=== PATIENT | female | born 1940 | race Caucasian/White ===

== ENCOUNTER → 2016-04-24 | Outpatient (CLI) | payer OTHER ==
[~2016-04-24] MED LIST: IOPAMIDOL (ISOVUE-370) 150 ML BTL IV ONE
== END ==
LOC: FIMAGING 10:23
PROVIDERS: ATTEND Internal Medicine Cardiovascular Disease
DX: I48.91 Unspecified atrial fibrillation (principal)
CPT/HCPCS: 75572; Q9967

== ENCOUNTER 2016-04-30 11:01 | Observation (INO) | payer OTHER ==
[2016-04-30] MEDS ORDERED: MIDAZOLAM 2 MG/2 ML VIAL IVP ONE (11:06)
[2016-04-30] MEDS ORDERED: NS 1,000 ML IV ONE (11:06)
--- NOTE | 2016-04-30 11:34 | CPEKG ---
Heart Rate: 62 RR Interval: 968 P-R Interval: 188 QRSD Interval: 88 QT Interval: 460 QTC Interval: 468 P Shannon: 73 QRS Shannon: 67 T Wave Shannon: 74 EKG Severity - ABNORMAL ECG - EKG Impression: SINUS RHYTHM EKG Impression: LEFT VENTRICULAR HYPERTROPHY Electronically Signed By: Jameson Campuzano 30-Apr-2016 15:34:50
[2016-04-30 12:13] LABS: % IMMATURE GRANULYOCYTES 0.4 % (0.0-1.1); ABSOLUTE IMMATURE GRANULOCYTES 0.03 10^3/uL (0.00-0.10); ADD DIFF? NO; ADD MORPH? NO; ADD SCAN? NO; ATYPICAL LYMPHOCYTE FLAG 20 (0-99); FRAGMENT RBC FLAG 0 (0-99); HEMATOCRIT 38.8 % (38.0-47.0); HEMOGLOBIN 12.8 g/dL (12.6-16.3); LEFT SHIFT FLG 0 (0-99); LIPEMIA HEMOLYSIS FLAG 80 (0-99); MEAN CELL HEMOGLOBIN 30.5 pg (27.9-34.1); MEAN CELL VOLUME 92.4 fL (81.5-99.8); MEAN PLATELET VOLUME 9.2 fL (8.7-11.7); PLATELET CLUMPS FLAG 0 (0-99); PLATELET COUNT 208 10^3/uL (150-400); RED CELL DISTRIBUTION WIDTH 12.7 % (11.5-15.2)
[2016-04-30] MEDS ORDERED: HEPARIN/DEXTROSE 25,000 UNIT/500 ML BAG IV ONE (12:16)
[2016-04-30] MEDS ORDERED: LIDOCAINE 1% 30 ML SDV ONE (12:16)
[2016-04-30] MEDS ORDERED: BUPIVACAINE 0.5% 30 ML SDV ONE (12:17)
[2016-04-30] MEDS ORDERED: HEPARIN 10,000 UNIT/10 ML MDV ONE (12:17)
[2016-04-30 12:23] LABS: APTT 30.6 SEC (23.0-38.0); INR 1.36 (0.83-1.16); PROTIME(PATIENT) 16.8 SEC (12.0-15.0)
[2016-04-30 12:27] LABS: ANION GAP 8 mEq/L (8-16); CALCIUM 9.4 mg/dL (8.5-10.4); CARBON DIOXIDE 25 mEq/l (22-31); CHLORIDE 107 mEq/L (97-110); CREATININE 0.7 mg/dL (0.6-1.0); GLOMERULAR FILTRATION RATE > 60; GLUCOSE 101 mg/dL (70-100); POTASSIUM 4.5 mEq/L (3.5-5.2); SODIUM 140 mEq/L (134-144)
[2016-04-30] MEDS ORDERED: OXYCODONE/APAP 5/325 TAB PO PRN (16:35)
[2016-04-30] MEDS ORDERED: ONDANSETRON 4 MG/2 ML VIAL IVP PRN (16:35)
[2016-04-30] MEDS ORDERED: ACETAMINOPHEN 325 MG TAB PO PRN ×2 (16:35→16:37)
[2016-04-30] MEDS ORDERED: ATROPINE SULFATE 1 MG/10 ML SYR ONE (17:17)
[2016-04-30] MEDS ORDERED: NON-FORMULARY NEW DRUG (Simvastatin [Zocor] 20 MG) PO SCH ×2 (21:00)
[2016-04-30] MEDS ORDERED: ATORVASTATIN CALCIUM 10 MG TAB PO SCH (21:00)
[2016-04-30] MEDS ORDERED: traZODone 100 MG TAB PO SCH (21:00)
[2016-04-30] MEDS: GABAPENTIN 300 MG CAP PO SCH (21:45)
[2016-04-30] MEDS: SOTALOL HCL 80 MG TAB PO SCH (21:46)
[2016-05-01] MEDS ORDERED: ENOXAPARIN 80 MG/0.8 ML SYR SC ONE (01:00)
[2016-05-01] MEDS: ENOXAPARIN 80 MG/0.8 ML SYR SC SCH ×2 (01:02→12:31)
[2016-05-01] MEDS ORDERED: LEVOTHYROXINE 88 MCG TAB PO SCH (06:00)
[2016-05-01 06:35] LABS: % IMMATURE GRANULYOCYTES 0.4 % (0.0-1.1); ABSOLUTE IMMATURE GRANULOCYTES 0.03 10^3/uL (0.00-0.10); ADD DIFF? NO; ADD MORPH? NO; ADD SCAN? NO; ATYPICAL LYMPHOCYTE FLAG 20 (0-99); FRAGMENT RBC FLAG 0 (0-99); HEMATOCRIT 33.8 % (38.0-47.0); HEMOGLOBIN 11.2 g/dL (12.6-16.3); LEFT SHIFT FLG 0 (0-99); LIPEMIA HEMOLYSIS FLAG 80 (0-99); MEAN CELL HEMOGLOBIN 30.4 pg (27.9-34.1); MEAN CELL HEMOGLOBIN CONCENTR. 33.1 g/dL (32.4-36.7); MEAN CELL VOLUME 91.8 fL (81.5-99.8); MEAN PLATELET VOLUME 9.3 fL (8.7-11.7); PLATELET CLUMPS FLAG 30 (0-99); PLATELET COUNT 174 10^3/uL (150-400); RED BLOOD CELL COUNT 3.68 10^6/uL (4.18-5.33); RED CELL DISTRIBUTION WIDTH 12.7 % (11.5-15.2)
[2016-05-01 06:49] LABS: INR 1.29 (0.83-1.16); PROTIME(PATIENT) 16.1 SEC (12.0-15.0)
[2016-05-01 06:57] LABS: ANION GAP 5 mEq/L (8-16); CALCIUM 8.6 mg/dL (8.5-10.4); CARBON DIOXIDE 23 mEq/l (22-31); CHLORIDE 107 mEq/L (97-110); CREATININE 0.6 mg/dL (0.6-1.0); GLOMERULAR FILTRATION RATE > 60; GLUCOSE 117 mg/dL (70-100); POTASSIUM 4.5 mEq/L (3.5-5.2); SODIUM 135 mEq/L (134-144)
[2016-05-01 07:06] LABS: CK-MB INTERPRETATION POSITIVE (NEGATIVE)
[2016-05-01 08:17] VITALS: TEMP 97.6
[2016-05-01] MEDS: GABAPENTIN 300 MG CAP PO SCH (08:29)
[2016-05-01] MEDS: SOTALOL HCL 80 MG TAB PO SCH (08:29)
--- NOTE | 2016-05-01 08:45 | CPEKG ---
Heart Rate: 69 RR Interval: 870 P-R Interval: 192 QRSD Interval: 90 QT Interval: 452 QTC Interval: 485 P Ryde: 82 QRS Ryde: 78 T Wave Ryde: 69 EKG Severity - NORMAL ECG - EKG Impression: SINUS RHYTHM Electronically Signed By: Jameson Campuzano 01-May-2016 14:36:22
[2016-05-01] MEDS ORDERED: PANTOPRAZOLE SODIUM 40 MG TAB PO SCH (09:00)
[2016-05-01] MEDS ORDERED: Herbals/Supplements -Info Only PO SCH (09:00)
[2016-05-01] MEDS ORDERED: CHOLECALCIFEROL VIT D3 1,000 UNITS TAB PO SCH (09:00)
--- NOTE | 2016-05-01 10:29 | EPPROC ---
Electrophysiology Procedure Note: ELECTROPHYSIOLOGIC STUDY AND BALLOON-CATHETER MEDIATED CRYOABLATION FOR ____ ATRIAL FIBRILLATION Procedures performed: 77972-84 EP evaluation with RA/RV/LA pace/record, with arrhythmia induction 79394-18 EP evaluation with RA/RV pace record, insert/reposition catheter, with arrhythmia induction 82687 Atrial fibrillation ablation Intracardiac echocardiogram Transseptal puncture Fluoroscopy INDICATION: Paroxysmal atrial fibrillation PROCEDURE: The patient arrived in the Electrophysiology Laboratory in the fasting state. The right groin, left groin and right infraclavicular area were prepped and draped in the usual sterile fashion. Anesthesiologist administered general anesthesia . All catheters were placed percutaneously using the Seldinger technique and advanced into position under fluoroscopic guidance. One #7 [place] deflectable octapolar electrode catheter was placed in the His-bundle position via the left femoral vein (2mm spacing, IVC electrode for unipolar recordings). This catheter was placed in the coronary sinus after transseptal puncture but then due to recurrent dislodgement it had to be moved to RA and later placed in the SVC-R subclavian vein junction to pace the right phrenic nerve during right pulmonary vein ablation. One #8 [place] AcuNaV ultrasound catheter was placed in the left femoral vein and advanced into the right atrium. One #4 [place] sheath was inserted into the left femoral artery via percutaneous technique and used for continuous arterial blood pressure monitoring and intermittent ACT determination. Programmed stimulation was performed from the right atrium, left atrium (CS) and right ventricle. There was no evidence of AV accessory pathway. Intracardiac echo evaluation of the left atrium and pulmonary veins was performed. Baseline ACT was drawn and heparin bolus was administered and heparin drip was started prior to transseptal puncture. ACT was checked every 15 minutes and maintained in the range of 350-400 seconds. One 14Fr short sheath was placed in the right femoral vein. One 8Fr SL1 sheath was advanced into the right atrium via the 14Fr short sheath. Transseptal puncture was performed under intracardiac ultrasound, fluoroscopic and hemodynamic guidance placing the sheath into the left atrium. Percival RF needle ( C0 curve) was used. The mean left atrial pressure was 8 mmHg. Pulmonary vein angiogram was done using SL1 sheath. CT angiography of pulmonary veins was done previously. There were distinct LSPV, LIPV, RSPV and RIPV. The SL1 sheath was exchanged for a Medtronic Flexcath sheath using an Amplatz stiff guide wire. A 28 mm Cryoballoon catheter with a 20 mm Achieve catheter was placed via the sheath into the left atrium. Intracardiac ultrasound and PV angiograms were used to assist in placing the mapping catheter at the antrum of the pulmonary veins. All pulmonary veins were isolated successfully using cryoballoon ablation using freeze/thaw/freeze cycles at 2-3-minute intervals, with good [id number] of isolation. Coumadin ridge/Ligament of Sagar region was ablated. Pre and post pulmonary vein recordings were measured on the spiral Achieve catheter to ensure complete pulmonary vein isolation. During the right-sided ablation, phrenic nerve pacing was performed to assess the phrenic nerve strength ( manually and with ICE visualization of liver movement during phrenic capture) and the phrenic nerve was intact throughout the right-sided ablation and at the end of the procedure. An esophageal temperature probe (12 electrode, Circa) was placed by the anesthesiologist at the beginning of the procedure. Esophageal temperature was monitored continuously and cryoablation was interrupted if esophageal temperature was <15 C. Cryoapplications 9, total cryoablation time 1485. (LSPV 2 lesions (-44 degrees and 240sec), LIPV 3 lesions (-44 degrees and 240sec), RSPV 2 lesions (- 51 degrees and 180sec) RIPV 2 lesions (-44 degrees and 240 sec). RSPV was difficult to access but good occlusion and temperatures were achieved There was no spontaneous atrial fibrillation. Mapping of all 4 pulmonary veins after isoproterenol infusion showed that all 4 pulmonary veins remained isolated. ICE imaging post ablation was consistent with pre ablation imaging with no changes noted, moreover there was no left atrial/left ventricular thrombus and no pericardial effusion. The catheters were withdrawn. Protamine was given. The sheaths were removed and manual pressure was used for hemostasis. The patient was recovered from anesthesia. There were no complications. The patient was arousable and moving all four extremities at the end of the procedure. Results: Successful isolation of all 4 veins. CONCLUSIONS: * Paroxysmal atrial fibrillation. * Successful pulmonary vein isolation procedure (left and right pulmonary vein antrum) using cryoballoon ablation. * No apparent complications. Patient Problems: Problems Problem Status Onset Primary localized osteoarthritis of left knee Acute
--- NOTE | 2016-05-01 10:32 | ECHO ---
[id number] + + [address] : : [place] [address] : : [phone] + + Adult Echocardiographic Report + ---------+ :Name: ELVIS TOUSSAINT Tabathakaren Date: 05/01/2016 07:31 AM : : Hospital Admission Number: [id number] Laura rambomallorie: 245: :: 1940 Gender: Female Height: 67 i n : :Age: 75 yrs Race: WH,White Weight: 173 lb : :Reason For Study: S/P ablation : : BSA: 1.9 met ers2 : + ---------+ MMode/2D Measurements \T\ Calculations IVSd: 0.84 cm LVIDd: 3.9 cm FS: 41.3 % Ao root diam: LVPWd: 0.70 cm LVIDs: 2.3 cm EDV(Teich): 3.4 cm 66.0 ml LA dimension: ESV(Teich): 4.0 cm 17.9 ml EF(Teich): 72.8 % LVLd ap4: 7.4 cm SV(MOD-sp4): EDV(MOD-sp4): 38.0 ml 52.0 ml LVLs ap4: 5.8 cm ESV(MOD-sp4): 14.0 ml EF(MOD-sp4): 73.1 % Normal Measurement Values: + + :LVIDd (3.5-5.7cm) IVSd (0.6-1.1cm) LVPWd (0.6-1.1cm) Aortic Root (2.0-3.7cm)Left Atrium (1.5-4.0cm): :LV Vol(d) (76-115ml) LV Vol(s) (29-48ml) Ejec Fraction (50-65%)PV Ajith (0.6- 1.2m/s) TV Ajith (0.4-1.0m/s) : :MV E Ajith (0.8-1.0m/s)MV A Ajith (0.3-1.0m/s)LVOT Ajith (0.7-1.2m/s) Asc Ao Ajith ( 0.9-1.8m/s) : + + Doppler Measurements \T\ Calculations MV E max ajith: 96.3 cm/sec Ao V2 max: 97.7 cm/sec TR max ajith: 247.0 cm/sec MV A max ajith: 49.4 cm/sec Ao max P.8 mmHg TR max P.4 mmHg MV E/A: 1.9 RAP systole: 5.0 mmHg RVSP(TR): 29.4 mmHg Left Ventricle The left ventricle is normal in size and function. There is normal left ventricular wall thickness. Left ventricular systolic function is normal. Ejection Fraction = 65-70%. There is Doppler evidence for diastolic dysfunction. No regional wall motion abnormalities noted. Right Ventricle The right ventricle is normal in size and function. Atria The left atrium is mildly dilated. Right atrial size is normal. Transseptal puncture flow visualized. Mitral Valve The mitral valve is normal in structure and function. There is no evidence of mitral valve prolapse. There is no mitral valve stenosis. There is mild mitral regurgitation. Tricuspid Valve Normal tricuspid valve. There is mild tricuspid regurgitation. Right ventricular systolic pressure is normal. Aortic Valve The aortic valve is trileaflet. The aortic valve opens well. There is no aortic stenosis. There is no aortic insufficiency. Pulmonic Valve The pulmonic valve is normal in structure and function. There is no pulmonic valvular regurgitation. Great Vessels The aortic root is normal size. Pericardium/Pleural There is no pericardial effusion. Conclusion A complete two-dimensional transthoracic echocardiogram was performed (2D, M-mode, Doppler and color flow Doppler). The left ventricle is normal in size and function. Left ventricular systolic function is normal. Ejection Fraction = 65-70%. There is Doppler evidence for diastolic dysfunction. The left atrium is mildly dilated. There is mild mitral regurgitation. There is mild tricuspid regurgitation. Right ventricular systolic pressure is normal. Transseptal puncture flow visualized. There is no pericardial effusion. Other than expected flow across the interatrial septum post procedure, no siginificant change compared with 03/07/2015 Final Reading Physician: Dr Montserrat Muhammad electronically signed on 05/01/2016 10:30 AM Ordering Physician: Alonzo Ceja Performed By: Gloria Menchaca, MIROSLAVA
[2016-05-01 12:33] VITALS: BP 108/52; PULSE 64; RESP 16; O2SAT 96
--- NOTE | 2016-05-01 14:58 | GDS ---
ADMISSION DIAGNOSES: 1. Paroxysmal atrial fibrillation. 2. Paroxysmal atrial flutter. 3. Previous history of nonischemic cardiomyopathy with previous improvement of medication. 4. Obstructive sleep apnea. 5. Hypothyroidism. 6. Previous history of breast cancer. DISCHARGE DIAGNOSES: 1. Paroxysmal atrial fibrillation. 2. Status post electrophysiology and pulmonary vein isolation, atrial fibrillation ablation with cr yoballoon technique. 3. Paroxysmal atrial flutter with previous ablation. 4. History of nonischemic dilated cardiomyopathy with improvement with medication therapy. 5. Hyperthyroidism. 6. Hyperlipidemia. 7. Obstructive sleep apnea. 8. Previous history of breast cancer. PROCEDURES DURING HOSPITALIZATION: 1. Electrocardiogram. 2. Echocardiogram. 3. Electrophysiology study. 4. Pulmonary vein isolation with cryoballoon technique for atrial fibrillation ablation. BRIEF HISTORY: Please see H and P. The patient is a 75-year-old female who was noted to have atria l flutter in the past with previous ablation with recurring atrial fibrillation. She has recently u ndergone knee replacement and during rehab has been noted to have significantly more episodes of atr ial fibrillations. During her fibrillation, she reports less fatigue, shortness of breath. She is currently on antiarrhythmic therapy of sotalol, but continues to have episodes of AFib. She was see n by Dr. Ceja for evaluation and felt to be a good candidate for possible atrial fibrillation with c onsideration of switching atrial fibrillation ablation or attempting a different antiarrhythmic ther apy. Patient first chose to proceed on with atrial fibrillation. HOSPITAL COURSE: The patient was admitted to the [facility] and prepped for procedure and taken to the [facility] ct[facility] lab there. EP procedure was done. Paroxysmal atrial fibrillation was found. At fredrick t point, pulmonary vein isolation procedure with cryoballoon ablation for atrial fibrillation ablati on was done successfully with no complications. The patient was ultimately taken back to ICU for ov ernight observation. There, she reports that she has felt mildly fatigued, but denies of any chest pain or shortness of breath. She has been up and walking the unit with no difficulties. She has alvarado d no bleeding complications at her groin site. She has remained in sinus rhythm. PHYSICAL EXAMINATION TODAY: GENERAL APPEARANCE: Medium built, well-groomed, female. She is alert and oriented to person, place, time, and situation. Appears to be under no acute distress . CURRENT VITAL SIGNS: Blood pressure of 108/52, heart rate of 64, respirations 16, saturating 96% on room air, temperature of 36.4 degrees Celsius. HEENT: Head is normocephalic. Lips and tongue are pink and moist with no signs of cyanosis. Conjunctivae pink. NECK: Trachea is midline, +2 car otid pulses bilaterally, no auscultated bruits, no jugular vein distention. RESPIRATORY: Lungs laura ar to auscultation. No rhonchi, rales or wheezes. No accessory muscle use, no intercostal muscle r etraction noted. CARDIAC: Regular rate, regular rhythm, S1, S2, no S3, S4, gallops rubs or murmurs noted. ABDOMEN: Soft, nontender, normoactive bowel sounds x4 quadrants, no organomegaly, no palpa ble masses. SKIN: [place], warm, dry, no cyanosis, no clubbing, no peripheral edema. VASCULAR: +2 c arotids bilateral, +2 radials bilateral, +1 dorsal pedal and posterior tibial pulses bilateral. Cat heter insertion site: Bilateral groin sites, no redness, swelling, drainage, ecchymosis, or hematom a noted. No auscultated bruit noted over either site. NEURO: Cranial nerves II through XII grossl y intact. LABORATORY STUDIES TODAY: WBC 8.35, hemoglobin 11.2, hematocrit of 33.8, platelet count 174. INR 1 .29. Sodium 135, potassium 4.5, chloride 107, CO2 23, BUN 14, creatinine 0.6, glucose 117. Calcium 8.6, CK of 391, CK-MB fraction 23.8, CK-MB percentage 6.1, troponin 4.820. Note: Expected elevated cardiac enzymes status post cryoballoon ablation for atrial fibrillation. PROCEDURES: 1. Electrophysiology study, as mentioned above. 2. Ablation procedure, as mentioned above. 3. Electrocardiogram done today shows sinus rhythm, normal axis, no significant ST or T-wave abnorm alities suggestive of ischemia. 4. Echocardiogram done today shows normal LV wall motion with normal ejection fraction, no signific ant pericardial effusion noted (preliminary report). DISCHARGE DISPOSITION: Patient will be discharged home in stable condition. DISCHARGE ACTIVITIES: She is under activity restrictions of no strenuous activities, not lifting mo re than 10 pounds for the next week, and no strenuous activity for the next 2 weeks. DISCHARGE MEDICATIONS: Please see discharge medication reconciliation sheet. Note, patient will continue on Lovenox therapy at 1 mg/kg every 12 hours until Wednesday, along with ta rafita her warfarin. We plan on having an INR drawn on Wednesday, with evaluation with our Coumadin nurs e if necessary. Will continue her on Coumadin therapy into her INR remains therapeutic at 1.9 or gr eater. She continues on current home dose of sotalol. The patient has also been started on Protonix 40 mg daily which she has been advised that she needs to take for the next 6 weeks. DISCHARGE INSTRUCTIONS: Post-atrial fibrillation discharge instructions were gone over with the pat flip and her , including monitoring for signs of infection, bleeding precautions, activity re strictions, medication compliance, and followup. Both of them verbalized understanding. At the otf e of discharge, neither one has any further questions. They have been told that if any problems or concerns come up postdischarge, they are to call our office or seek medical attention immediately. FOLLOWUP: The patient has a followup appointment with Dr. Ceja in 2 weeks, sooner if necessary. TIME SPENT: Total time spent on discharge greater than 30 minutes. /[id number]/MODL
[2016-05-01] MEDS ORDERED: WARFARIN SODIUM 5 MG TAB PO SCH (16:00)
== END 2016-05-01 15:36 | disposition home or self-care (01) ==
LOC: FCATH 11:01 → F2N 16:35
PROVIDERS: ADMIT Internal Medicine Cardiovascular Disease; ATTEND Internal Medicine Cardiovascular Disease
PROC: 025S3ZZ Destruction of Right Pulmonary Vein, Percutaneous Approach (ICD-10-PCS; principal; 2016-04-30)
PROC: 025T3ZZ Destruction of Left Pulmonary Vein, Percutaneous Approach (ICD-10-PCS; principal; 2016-04-30)
DX: I48.0 Paroxysmal atrial fibrillation (principal); I42.9 Cardiomyopathy, unspecified; E03.9 Hypothyroidism, unspecified; E78.5 Hyperlipidemia, unspecified; G47.33 Obstructive sleep apnea (adult) (pediatric); E66.01 Morbid (severe) obesity due to excess calories; Z85.3 Personal history of malignant neoplasm of breast
CPT/HCPCS: 93005; 93306; 93609; 93656; 93662; C1730; C1731; C1732; C1733; C1759; C1893; G0378; J1644; J1650; J0461

== ENCOUNTER → 2016-11-21 | Outpatient (CLI) | payer OTHER | LOC: FIMAGING 12:44 | PROVIDERS: ATTEND Psychiatry & Neurology Neurology | DX: G81.94 Hemiplegia, unspecified affecting left nondominant side (principal); M21.372 Foot drop, left foot; R47.81 Slurred speech; M50.321 Other cervical disc degeneration at C4-C5 level; M50.323 Other cervical disc degeneration at C6-C7 level; M50.223 Other cervical disc displacement at C6-C7 level; M51.36 Other intervertebral disc degeneration, lumbar region; M51.37 Other intervertebral disc degeneration, lumbosacral region ==

== ENCOUNTER 2017-11-17 10:04 | Day surgery (SDC) | payer OTHER ==
[2017-11-17] MEDS ORDERED: MIDAZOLAM 2 MG/2 ML VIAL IVP ONE (10:07)
[2017-11-17] MEDS ORDERED: NS 500 ML IV ONE (10:07)
[2017-11-17] MEDS ORDERED: ATROPINE SULFATE 1 MG/10 ML SYR IVP ONE (10:07)
[2017-11-17] MEDS ORDERED: fentaNYL 100 MCG/2 ML INJ IVP ONE (10:07)
[2017-11-17 10:53] LABS: INR 3.4 (0.83-1.16); PROTIME(PATIENT) 34.1 SEC (12.0-15.0)
--- NOTE | 2017-11-17 11:23 | PDANEPAE ---
ANE History of Present Illness D/C CV for a-fib ANE Past Medical History - Cardiovascular History Hx Hypertension: No Hx Arrhythmias: Yes Hx Chest Pain: No Hx Coronary Artery / Peripheral Vascular Disease: No Cardiovascular History Comment: ablation 03-16 and Bet[place]ace now for Atrial flutter - Pulmonary History Hx COPD: No Hx Asthma/Reactive Airway Disease: No Hx Recent Upper Respiratory Infection: No Hx Oxygen in Use at Home: Yes Hx Sleep Apnea: Yes Pulmonary History Comment: ROBINSON uses CPAP and O2 at 2L - Neurologic History Hx Cerebrovascular Accident: No Hx Seizures: No Hx Dementia: No Neurologic History Comment: relative advanced ALS - Endocrine History Hx Diabetes: No - Renal History Hx Renal Disorders: No - Liver History Hx Hepatic Disorders: No - Neurological & Psychiatric Hx Hx Neurological and Psychiatric Disorders: Yes Neurological / Psychiatric History Comment: many falls due to neuropathy of feet. trazedone for sleep. - Cancer History Hx Cancer: Yes Cancer History Comment: breast - Congenital Disorder History Hx Congenital Disorders: No - GI History Hx Gastrointestinal Disorders: No Gastrointestinal History Comment: lasctose intolerant -prone to diarrhea - Other Health History Other Health History: OA-left knee, fx L wrist after fall early Nov, bruises easily - Chronic Pain History Chronic Pain: Yes (L knee) - Surgical History Prior Surgeries: L meniscus repair, ablation of heart, bunionectomy, mastectomy - bilat ANE Review of Systems Review of Systems: - Exercise capacity METS (RN): 2 METS ANE Patient History - Allergies Allergies/Adverse Reactions: Penicillins Allergy (Verified 04/30/16 12:17) Other-Enter Comments - Home Medications Home medications: home medication list seen and reviewed Home Medications: Cholecalciferol Vit D3 [Vitamin D3 (*)] 2,000 units PO DAILY 03/06/15 [Last Taken 04/29/16] Herbals/Supplements -Info Only 1 ea PO DAILY 03/06/15 [Last Taken 04/29/16] traZODone [traZODONE 100MG (*)] 100 mg PO HS 03/06/15 [Last Taken 04/29/16] Levothyroxine [Synthroid 88 mcg (*)] 88 mcg PO DAILY06 01/13/16 [Last Taken 03/17] Acetaminophen [Tylenol 325mg (*)] 325 mg PO DAILY PRN 02/14/16 [Last Taken 04/29] MIRTAZAPINE 10/14/17 [Last Taken Unknown] - NPO status NPO Status: no food or drink >8 hours - Smoking Hx Smoking Status: Never smoked - Alcohol Use Alcohol Use: None - Family Anes Hx Family Anes Hx: none ANE Labs/Vital Signs - Labs Result Diagrams: 11/17/17 10:35 - Vital Signs Height: 170 cm Weight: 79.4 kg ANE Physical Exam - Airway Neck exam: FROM Mallampati Score: Class 2 Mouth exam: normal dental/mouth exam - Pulmonary Pulmonary: no respiratory distress - Cardiovascular Cardiovascular: regular rate and rhythym - ASA Status ASA Status: IV ANE Anesthesia Plan Anesthesia Plan: GA with mask Total IV Anesthesia: Yes
[2017-11-17] MEDS ORDERED: SUCCINYLCHOLINE CHLORIDE 200 MG/10 ML SYR IVP ONE (11:37)
[2017-11-17] MEDS ORDERED: LIDOCAINE 2% 100 MG/5 ML SYR ONE (11:37)
[2017-11-17] MEDS ORDERED: PROPOFOL 200 MG/20 ML VIAL ONE (11:37)
--- NOTE | 2017-11-17 11:43 | PDHPUP ---
History & Physical Update H&P update statement: This history and physical update is based on an assessment of the patient which was completed after admission or registration (within 24 hours), but prior to the surgery/procedure. H&P update: H&P reviewed & patient examined, no change in patient's condition since H&P completed
--- NOTE | 2017-11-17 11:49 | PDCARD ---
Cardioversion Procedure Procedure: electrical cardioversion Indications: atrial fibrillation Consent: signed and in chart Anticoagulation: warfarin Procedural Details: Pads were placed in anterior-posterior position. Synchronized cardioversion attempt #1: 200J Results: normal sinus rhythm Conclusions: successful cardioversion Patient Problems: Problems Problem Status Onset Primary localized osteoarthritis of left knee Acute
[2017-11-17] MEDS ORDERED: LR 500 ML IV PRN (11:55)
[2017-11-17] MEDS ORDERED: PHENYLEPHRINE HCL 100 MCG/ML SYR IVP PRN (11:55)
[2017-11-17] MEDS ORDERED: NALOXONE HCL 0.4 MG/ML INJ IVP PRN (11:55)
[2017-11-17] MEDS ORDERED: ONDANSETRON 4 MG/2 ML VIAL IVP PRN (11:55)
[2017-11-17] MEDS ORDERED: ACETAMINOPHEN 500 MG TAB PO PRN (11:55)
[2017-11-17] MEDS ORDERED: ALBUTEROL 3 ML DEYVIAL IH PRN (11:55)
--- NOTE | 2017-11-17 11:56 | POSTANESTH ---
Post Anesthetic Evaluation Cardiovascular Status: Normal, Stable Respiratory Status: Normal, Stable, Tx Decrease in SpO2 Level of Consciousness/Mental Status: Can Participate in Eval Pain Control: Adequate, Prn Tx Ordered Nausea/Vomiting Control: Adequate, Prn Tx Ordered Complications Possibly Related to Anesthesia: None Noted
--- NOTE | 2017-11-18 12:01 | CPEKG ---
Test Reason : OPEN Blood Pressure : / mmHG Vent. Rate : 139 BPM Atrial Rate : 288 BPM P-R Int : 066 ms QRS Dur : 086 ms QT Int : 353 ms P-R-T Axes : 000 085 061 degrees QTc Int : 537 ms Atrial flutter with predominant 2:1 AV block Borderline right axis deviation Low voltage, extremity leads ST depression, probably rate related Prolonged QT interval Atrial flutter has replaced normal sinus rhythm noted on prior ECG Confirmed by Kwabena Martinez ([id number]) on 11/18/2017 12:00:23 PM Referred By: Confirmed By:Kwabena Martinez
--- NOTE | 2017-11-18 12:05 | CPEKG ---
Test Reason : OPEN Blood Pressure : / mmHG Vent. Rate : 071 BPM Atrial Rate : 072 BPM P-R Int : 216 ms QRS Dur : 090 ms QT Int : 392 ms P-R-T Axes : 005 000 028 degrees QTc Int : 426 ms Sinus rhythm Borderline prolonged VA interval Sinus rhythm with first degree AVB has replaced atrial fibrillation noted on prior ECG Confirmed by Kwabena Martinez ([id number]) on 11/18/2017 12:05:03 PM Referred By: Confirmed By:Kwabena Martinez
== END 2017-11-17 12:45 | disposition home or self-care (01) ==
LOC: FCATH 10:04
PROVIDERS: ATTEND Internal Medicine Cardiovascular Disease
PROC: 5A2204Z Restoration of Cardiac Rhythm, Single (ICD-10-PCS; principal; 2017-11-17)
DX: I48.0 Paroxysmal atrial fibrillation (principal); G12.21 Amyotrophic lateral sclerosis; Z79.01 Long term (current) use of anticoagulants
CPT/HCPCS: J0330; J0461; J2001; J2704